=== PATIENT | female | born 2005 | race Asian ===

== ENCOUNTER 2024-08-18 20:00 | Emergency (ER) | payer OTHER ==
[~2024-08-18] VITALS: Ht 157.5 cm; Wt 54.5 kg
[2024-08-18 20:12] VITALS: TEMP 98.3
[2024-08-18] MEDS ORDERED: PYRIDIUM200 M1 PO (20:40)
[2024-08-18] MEDS ORDERED: CEPHALEXIN500 M1 PO (20:40)
[2024-08-18 20:44] LABS: URINE APPEARANCE TURBID (CLEAR/HAZY); URINE BLOOD 3+ (NEGATIVE); URINE COLOR ORANGE (YELLOW); URINE GLUCOSE NEGATIVE (NEGATIVE); URINE KETONE TRACE (NEGATIVE); URINE NITRATE POSITIVE (NEGATIVE); URINE PROTEIN(semi-quant) 4+ (NEGATIVE); URINE UROBILINOGEN 0.2 E.U/dL (0.2-1.0)
[2024-08-18] MEDS ORDERED: Cephalexin 500 MG CAP PO ONE (20:45)
[2024-08-18 20:58] LABS: COLLECTION METHOD CLEAN CATCH; URINE WBC >50 /hpf (0-2)
[2024-08-18 20:59] LABS: URINE BACTERIA MODERATE /hpf (NONE SEEN); URINE RBC >50 /hpf (0-2)
[2024-08-18 21:38] VITALS: BP 126/94; PULSE 94
== END 2024-08-18 21:38 | disposition home or self-care (01) ==
LOC: COL.ER 20:00
PROVIDERS: Personal Emergency Response Attendant
DX: N39.0 Urinary tract infection, site not specified (principal)